=== PATIENT | male | born 1995 | race Caucasian/White ===

== ENCOUNTER 2025-03-16 19:50 | Emergency (ER) | payer BC ==
[2025-03-16] MEDS ORDERED: predniSONE 20 MG TAB ONE (20:13)
[2025-03-16] MEDS ORDERED: Amoxicillin/Potassium Clav 875 MG TAB ONE (20:13)
== END 2025-03-16 20:19 | disposition home or self-care (01) ==
LOC: MADERS 19:50
DX: J01.10 Acute frontal sinusitis, unspecified (principal); J01.00 Acute maxillary sinusitis, unspecified; F17.290 Nicotine dependence, other tobacco product, uncomplicated
CPT/HCPCS: 99283; J7512; Q0162